=== PATIENT | male | born 1995 | race African-American/Black ===

== ENCOUNTER 2021-05-19 11:42 | Emergency (ER) | payer BC ==
[~2021-05-19] VITALS: Ht 177.8 cm; Wt 81.8 kg
[~2021-05-19 11:42] MED LIST: NO HOME MEDICATIONS
[2021-05-19 11:48] VITALS: TEMP 98.1
[2021-05-19] MEDS ORDERED: NORCO 325 MG-51 TAB PO (12:48)
[2021-05-19 13:36] VITALS: BP 115/86; PULSE 60
== END 2021-05-19 13:36 | disposition home or self-care (01) ==
LOC: COL.ER 11:42
DX: S93.402A Sprain of unspecified ligament of left ankle, initial encounter (principal); X50.1XXA Overexertion from prolonged static or awkward postures, initial encounter; Y93.67 Activity, basketball